=== PATIENT | female | born 1995 | race Caucasian/White ===

== ENCOUNTER → 2018-05-22 | Outpatient (CLI) | payer OTHER | LOC: MHCPAIN 14:08 | DX: G89.29 Other chronic pain (principal); M53.3 Sacrococcygeal disorders, not elsewhere classified | CPT/HCPCS: G0463 ==

== ENCOUNTER → 2018-05-28 | Outpatient (CLI) | payer OTHER | LOC: MHCPAIN 12:05 | DX: M53.3 Sacrococcygeal disorders, not elsewhere classified (principal) | CPT/HCPCS: G0260; J1040; Q9967 ==

== ENCOUNTER → 2018-07-12 | Outpatient (CLI) | payer OTHER | LOC: COL.RAD 08:15 | DX: S73.192A Other sprain of left hip, initial encounter (principal) | CPT/HCPCS: A9585; J3301; Q9967 ==

== ENCOUNTER → 2018-11-21 | Outpatient (CLI) | payer OTHER | LOC: COL.CARD 09:45 | DX: R40.4 Transient alteration of awareness (principal) ==